=== PATIENT | male | born 2000 | race Two or more races ===

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

== ENCOUNTER 2018-10-25 15:48 | Emergency (ER) | payer MEDICAID ==
[~2018-10-25] VITALS: Ht 170.2 cm; Wt 61.5 kg
[~2018-10-25 15:48] MED LIST: ONDA4TAB6 PO; PROM25SU46 RC
[2018-10-25 16:32] LABS: BASOPHILS % (AUTO) 0.2 % (0-1); EOSINOPHILS % (AUTO) 0 % (0-6); HEMATOCRIT 46.9 % (42.0-52.0); LYMPHOCYTES # (AUTO) 0.8 X10'3 (1.1-4.8); LYMPHOCYTES % (AUTO) 5.7 % (21-51); MEAN CORPUSCULAR HEMOGLOBIN 31.6 PG (27.0-31.0); MEAN CORPUSCULAR HGB CONC 34.1 % (33.0-36.5); MEAN CORPUSCULAR VOLUME 92.7 FL (78-98); MEAN PLATELET VOLUME 8.4 FL (7.4-10.4); MONOCYTES # (AUTO) 0.5 X10'3 (0-0.9); MONOCYTES % (AUTO) 3.9 % (2-12); NEUTROPHILS # (AUTO) 11.8 X10'3 (1.8-7.7); NEUTROPHILS % (AUTO) 90.2 % (42-75); PLATELET COUNT 251 X10'3 (140-440); RED BLOOD COUNT 5.06 X10'6 (4.70-6.10); RED CELL DISTRIBUTION WIDTH 13.1 % (11.5-14.5); WHITE BLOOD COUNT 13.1 X10'3 (4.5-11.0)
[2018-10-25 16:48] LABS: ALANINE AMINOTRANSFERASE 34 U/L (12-78); ALBUMIN 4.9 G/DL (3.4-5.0); ALBUMIN/GLOBULIN RATIO 1.4 (1.1-1.5); ALKALINE PHOSPHATASE 54 IU/L (20-180); ANION GAP 14 (8-16); ASPARTATE AMINO TRANSFERASE 33 U/L (10-37); BILIRUBIN,TOTAL 0.8 MG/DL (0.1-1.0); BLOOD UREA NITROGEN 13 MG/DL (7-18); BUN/CREATININE RATIO 9.8 (5.4-32.0); CALCIUM 9.7 MG/DL (8.5-10.1); CHLORIDE 102 MMOL/L (99-107); CREATININE 1.33 MG/DL (0.60-1.10); GLUCOSE 155 MG/DL (70-104); LIPASE 64 U/L (73-393); POTASSIUM 3.9 MMOL/L (3.5-5.1); SODIUM 141 MMOL/L (135-145); TOTAL CARBON DIOXIDE 24.6 MMOL/L (24-32); TOTAL PROTEIN 8.3 G/DL (6.4-8.2); eGFR 69 ML/MIN
[2018-10-25 17:11] LABS: INR 1.1 INR; PROTHROMBIN TIME 11.4 SECONDS (9.0-12.0)
[2018-10-25] MEDS ORDERED: ondansetron/PF 4mg/2ml inj IV ONE (17:40)
[2018-10-25] MEDS ORDERED: normal saline 1000ML IV soln IVB ONE ×2 (17:40→18:20)
[2018-10-25] MEDS ORDERED: proCHLORperazine 10 MG/2 ml inj IV ONE (18:35)
[2018-10-25] MEDS ORDERED: ONDA4TAB6 PO (19:12)
[2018-10-25 19:33] VITALS: BP 106/60
== END 2018-10-25 19:35 | disposition home or self-care (01) ==
LOC: ER 15:49
DX: R11.2 Nausea with vomiting, unspecified (principal); R10.84 Generalized abdominal pain; F12.90 Cannabis use, unspecified, uncomplicated; Z91.013 Allergy to seafood
CPT/HCPCS: 36415; 80053; 83690; 85025; 85610; 96361; 96374; 96375; 99283; J0780; J2405; J7030

== ENCOUNTER 2020-09-10 09:22 | Emergency (ER) | payer MEDICAID ==
[~2020-09-10] VITALS: Ht 170.2 cm; Wt 60.0 kg
[~2020-09-10 09:22] MED LIST changes: -PROM25SU46 RC; +PROM25SU9 RC
[2020-09-10] MEDS ORDERED: ALBU6.7H9 INH (09:40)
[2020-09-10 09:51] VITALS: BP 96/55
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
== END 2020-09-10 10:06 | disposition home or self-care (01) ==
LOC: ER 09:22
DX: U07.1 COVID-19 (principal); J06.9 Acute upper respiratory infection, unspecified; R07.89 Other chest pain; R05 Cough; R43.8 Other disturbances of smell and taste; J45.909 Unspecified asthma, uncomplicated; F17.200 Nicotine dependence, unspecified, uncomplicated; F19.90 Other psychoactive substance use, unspecified, uncomplicated; F12.90 Cannabis use, unspecified, uncomplicated; Z91.013 Allergy to seafood; Z79.899 Other long term (current) drug therapy
CPT/HCPCS: 36415; 87635; 99283

== ENCOUNTER 2023-07-05 08:03 | Emergency (ER) | payer MEDICAID ==
[~2023-07-05] VITALS: Ht 170.2 cm; Wt 61.0 kg
[~2023-07-05 08:03] MED LIST changes: +ALBU6.7H14 INH
[2023-07-05] MEDS ORDERED: LIDOcaine 1% W/epiNEPHrine 1:100,000 20ml vial SQ ONE (11:00)
[2023-07-05] MEDS ORDERED: tetanus & diphtheria toxoid (Td) vaccine 0.5ml IMVAC ONE (11:10)
[2023-07-05] MEDS ORDERED: TETanus/Pertussis (Acell)/Diphther VAC/PF (Tdap-Adult) 0.5ml syringe IMVAC ONE (11:15)
[2023-07-05 11:34] VITALS: BP 136/99; PULSE 55; RESP 17; O2SAT 100
== END 2023-07-05 11:37 | disposition home or self-care (01) ==
LOC: ER 08:04
DX: S01.01XA Laceration without foreign body of scalp, initial encounter (principal); J45.909 Unspecified asthma, uncomplicated; F12.90 Cannabis use, unspecified, uncomplicated; Z72.89 Other problems related to lifestyle; Z91.013 Allergy to seafood; Z79.899 Other long term (current) drug therapy; Z23 Encounter for immunization; W22.8XXA Striking against or struck by other objects, initial encounter; Y93.89 Activity, other specified; Y92.89 Other specified places as the place of occurrence of the external cause; Y99.8 Other external cause status
CPT/HCPCS: 12001; 90471; 90715; 99283

== ENCOUNTER 2023-07-14 15:30 | Emergency (ER) | payer MEDICAID ==
[~2023-07-14] VITALS: Ht 170.2 cm; Wt 59.6 kg
[2023-07-14 16:32] VITALS: BP 116/51; PULSE 83; RESP 16; TEMP 97.8; O2SAT 96
--- NOTE | 2023-07-14 16:36 | NUR ---
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
== END 2023-07-14 16:36 | disposition home or self-care (01) ==
LOC: ER 15:31
DX: S01.01XD Laceration without foreign body of scalp, subsequent encounter (principal); X58.XXXD Exposure to other specified factors, subsequent encounter; Z48.00 Encounter for change or removal of nonsurgical wound dressing
CPT/HCPCS: 99281